=== PATIENT | male | born 1945 | race Caucasian/White ===

== ENCOUNTER 2020-10-04 23:53 | Inpatient (IN) | payer MEDICARE, OTHER ==
[~2020-10-04] VITALS: Ht 177.8 cm; Wt 102.0 kg
[~2020-10-04 23:53] MED LIST: ASPIRIN 8181 MG PO; COQ-10100 M1 PO; COREG6.25 MG PO; COZAAR100 MG PO; FAMOTIDINE20 M1 PO; LISINOPRIL20 MG OR; LOVAZA1 GM PO; NIASPAN1000 ER PO; PLAVIX75 MG PO; VYTORIN 10/201 TAB PO
--- NOTE | 2020-10-04 23:54 | NUR ---
AMBULATED TO ROOM WITH STEADY GAIT
[2020-10-05] VITALS (15 sets, daily range): BP systolic 92–171; BP diastolic 61–98
--- NOTE | 2020-10-05 00:10 | NUR ---
IV INTIATED WITH BLOOD SPECIMENS OBTAINED AND TOLERATED WELL. COVID SWABS COLLETED PER ORDER.
[2020-10-05] MEDS ORDERED: VASCEPA1 GM PO (00:21)
[2020-10-05] MEDS ORDERED: VYTORIN 10/201 TAB PO (00:23)
[2020-10-05] MEDS ORDERED: MULTIVITAMI9 PO (00:24)
[2020-10-05] MEDS ORDERED: EYE VITAMINS PO (00:25)
[2020-10-05] MEDS ORDERED: [UNRECOGNIZED DRUG - OTHER] PO (00:26)
--- NOTE | 2020-10-05 00:34 | NUR ---
PT MEDICATED WITH CARDIZEM 25 MG SLOW IVP. PT TOLERATED PUSH WITHOUT DIFFICULTY. HR RANGING FROM 80-90S AFIB. BLOOD PRESSURE 131/61. PT AOX3. RESP EVEN AND UNLABORED. SKIN WARM AND DRY. REPORTS "CONTINUED RUSHED FEELING IN CHEST." NEWSPAPER DELIVERY COUNSELOR CONT TO BE IN PLACE.
[2020-10-05 00:47] LABS: HEMATOCRIT 45.7 % (39.0-50.0); HEMOGLOBIN 15.4 g/dl (14.0-18.0); IMMATURE GRANULOCYTES 0.2 % (0.0-5.0); MEAN CELL VOLUME 90.5 fL CALC (80.0-100.0); MEAN CORPUSCULAR HGB 30.5 pG CALC (26.0-32.0); MEAN CORPUSCULAR HGB CONC 33.7 g/dL CAL (32.0-36.0); NEUT# 2.97 thou/uL (1.82-7.42); RED BLOOD COUNT 5.05 mill/uL (4.70-6.10); RED CELL DISTRI WIDTH 13.3 % (11.5-15.5)
--- NOTE | 2020-10-05 01:00 | NUR ---
PT REPORT PROVIDED TO KARTIK LUNA. CARE RELINQUISHED AT THIS TIME.
--- NOTE | 2020-10-05 01:11 | NUR ---
RESTING COMFORTABLY. AWAITING LAB RESULTS.
[2020-10-05 01:12] LABS: ALKALINE PHOSPHATASE 69 u/l (38-126); ANION GAP 11 (6-22 (CALC)); BILIRUBIN, TOTAL 0.7 mg/dL (0.0-1.4); BUN 20 mg/dL (8-23); BUN/CREATININE RATIO 22 (12-20 (CALC)); CARBON DIOXIDE 24 mmol/l (22-30); CHLORIDE 107 mmol/l (95-108); CREATININE 0.9 mg/dL (0.7-1.3); GFR > 60 ML/MIN (>=60 (CALC)); GFR FOR AFR.AMER. > 60 ML/MIN (>=60 (CALC)); POTASSIUM 4.1 mmol/l (3.5-5.1); SGOT/AST 28 u/l (19-48); SODIUM 138 mmol/l (137-146); TOTAL PROTEIN 6.3 g/dL (6.3-8.2)
[2020-10-05 01:15] LABS: ACT PARTIAL THROMBO TIME 24.2 SECONDS (20.0-32.5); PROTHROMBIN TIME 10.4 SECONDS (9.0-12.5)
[2020-10-05 01:25] LABS: MYOGLOBIN 76 ng/mL (0 - 121)
[2020-10-05 01:26] LABS: D-DIMER 0.79 mg/L (0.19-0.60)
--- NOTE | 2020-10-05 02:00 | NUR ---
ADDITIONAL TESTS ORDERED. ADMIT PENDING
--- NOTE | 2020-10-05 02:37 | NUR ---
Admission Note Report Given to: CHERYL DERAS Transported by: X Wheelchair Stretcher Transported with: X Nurse Transporter X Patent IV X O2 X Bakery Worker Conveyor Line Location: X ICU MS2
--- NOTE | 2020-10-05 02:40 | NUR ---
75 yr old white male admitted icu6 per wc from er. amb self to bed. bed weight obtained. denies distress. quality assurance monitor final shows a fib hr 83. #18 lac cardizem gtt infusing # 5mg/hr, ns infusing @ 20cchr. history obtained per pt & er record. oriented to room. fall precautions initiated.
--- NOTE | 2020-10-05 04:00 | NUR ---
eyes closed. no distress. laboratory monitor shows a fib hr 52
--- NOTE | 2020-10-05 05:44 | NUR ---
lab here. blood drawn.
--- NOTE | 2020-10-05 07:29 | NUR ---
PT REPORT RECEIVED FROM DISTILLERY WORKER GENERAL, PT HEART RATE IN THE 80'S, DENIES ANY SOB, DENIES CHEST PAIN, UP IT BED TALKING ON PHONE, ALERT/ORIENTED X3.
--- NOTE | 2020-10-05 10:07 | NUR ---
PT STATES HE WOULD LIKE TO BE TRANSFERRED TO HIS [facility]UT[facility]NAGER IN [place], BECAUSE THAT IS WHERE HE HAS HIS OWN HOME AND OWN DOCTORS, ADVISED HIM TO WAIT TO SEE WHAT DR. JORDAN RECOMMENDS WHEN HE DOES HIS ROUNDS. PT REMAINS ALERT/ORIENTED X3, SINUS RHYTHM IN THE 80'S.
[2020-10-05] MEDS ORDERED: ELIQUIS5 MG PO (11:26)
[2020-10-05] MEDS ORDERED: NORVASC PO (11:30)
--- NOTE | 2020-10-05 11:32 | NUR ---
DR. JORDAN EXAMINING PT. PT STATES HE FEELS FINE, NO MORE FEELING OF RAPID HEART RATE. AND HE WOULD LIKE TO GO SEE HIS OWN DOCTOR IN [place], STATES HE HAS FAMILY MEMEMBER THAT IS PRESCRIPTION CLERK IN CLINIC THERE AND WILL BE DISCHARGED AND GO UP TO MAKE APPOINTMENTS TODAY.
--- NOTE | 2020-10-05 11:34 | NUR ---
WILL START TO WEAN PT OFF OF HIS CARDIZEM GTT TO BE ABLE TO GO HOME.
--- NOTE | 2020-10-05 14:18 | NUR ---
TYPED UP DISCHARGE INST AND HIGHLIGHTED CHANGES TO MEDICATIONS AND THOUROUGHLY DISCUSSED INSTRUCTIONS WITH PT ON MONITER HEART RATE AND BLOOD PRESSURE AND TO GO IMMEDIATELY TO THE NEAREST HOSPITAL IF ANY SYMPTOMS REOCCUR. PT VOICES UNDERSTANDING. ADVISED HE COULD CALL HIS FOR METAL BONDING ASSEMBLER AROUND 3.
--- NOTE | 2020-10-05 15:10 | NUR ---
PT DISCHARGED WITH INST. AND W/C TO ER OUTSIDE TO WAIT FOR .
== END 2020-10-05 15:20 | disposition home or self-care (01) | DRG 310 ==
LOC: ED 23:53 → ED-I 10-05 00:29 → ED 10-05 01:46 → ICU 10-05 01:47
PROVIDERS: Family Medicine; ADMIT Internal Medicine; ATTEND Internal Medicine
DX: I48.91 Unspecified atrial fibrillation (principal); I10 Essential (primary) hypertension; I25.10 Atherosclerotic heart disease of native coronary artery without angina pectoris; J40 Bronchitis, not specified as acute or chronic; M19.90 Unspecified osteoarthritis, unspecified site; I25.2 Old myocardial infarction; Z85.46 Personal history of malignant neoplasm of prostate; Z87.891 Personal history of nicotine dependence; Z95.5 Presence of coronary angioplasty implant and graft; Z20.822 Contact with and (suspected) exposure to COVID-19
CPT/HCPCS: J1650